=== PATIENT | male | born 1955 | race Caucasian/White ===

== ENCOUNTER 2017-02-05 18:40 | Emergency (ER) | payer MEDICAID ==
[~2017-02-05] VITALS: Ht 170.2 cm; Wt 68.9 kg
[2017-02-05 19:24] VITALS: BP 116/68; PULSE 71; RESP 18; TEMP 97.1; O2SAT 97
--- NOTE | 2017-02-05 19:29 | NUR ---
Patient triaged and placed in waiting room. VSS and patient appears in no acute distress at this time. Accompanied by self, awaiting available bed, and MD notified of need for MSE.
--- NOTE | 2017-02-05 19:35 | NUR ---
Pt came in for machado removal per PMD request. Pt states he is in no pain or discomfort. Will continue to monitor. No other injuries or complaints mentioned/noted. No distress noted.
--- NOTE | 2017-02-05 20:00 | NUR ---
Zev weeks in ED - 02/06/17 at 0615 by AZEEM AMALIA Lui at bedside examining patient.
--- NOTE | 2017-02-05 20:00 | NUR ---
ER Dr. Lui examining patient in triage room.
--- NOTE | 2017-02-05 21:00 | NUR ---
Goodrich removal per Dr. Lui orders w/o incident. Pt told that he needs to void here before discharge. Pt understood instructions.
--- NOTE | 2017-02-05 22:00 | NUR ---
Pt eloped from waiting room.
== END 2017-02-05 19:29 | disposition home or self-care (01) ==
LOC: SED 18:40
DX: Z46.6 Encounter for fitting and adjustment of urinary device (principal); I25.2 Old myocardial infarction; Z53.20 Procedure and treatment not carried out because of patient's decision for unspecified reasons
CPT/HCPCS: 99281

== ENCOUNTER 2017-07-12 06:32 | Emergency (ER) | payer MEDICAID ==
[~2017-07-12] VITALS: Ht 162.6 cm; Wt 69.9 kg
[2017-07-12 06:35] VITALS: BP_SYST 118
--- NOTE | 2017-07-12 06:35 | NUR ---
Patient to ER bed 8 to gown for evaluation. Side rails up. Report given to DEANN RIVER.
--- NOTE | 2017-07-12 06:36 | NUR ---
Patient AAO X4, sitting in bed c/o urinary retention. Patient states he had a prostate biopsy on thursday07/10/17. Patient last voided last night. Unable to void this morning. No acute distress noted. Will continue to monitor.
--- NOTE | 2017-07-12 06:50 | NUR ---
# 16 FR Goodrich catheter with use of sterile technique. Immediate return of 350 cc clear yellow urine noted. Bedside drainage bag placed below level of bladder. Urine sample collected and sent to lab. Pt tolerated procedure well, no adverse reactions noted.
--- NOTE | 2017-07-12 06:52 | NUR ---
AMALIA Mera at bedside examining patient.
[2017-07-12 07:24] VITALS: BP_SYST 108
--- NOTE | 2017-07-12 07:24 | NUR ---
Patient given written and verbal discharge instructions and verbalizes understanding. ER MD discussed with patient the results and treatment provided. Patient in stable condition. ID arm band removed. No Rx of given. Patient educated on pain management and to follow up with PMD. Pain Scale 0/10 . Opportunity for questions provided and answered.
== END 2017-07-12 07:24 | disposition home or self-care (01) ==
LOC: SED 06:32
DX: R33.9 Retention of urine, unspecified (principal); I25.2 Old myocardial infarction
CPT/HCPCS: 99284

== ENCOUNTER 2017-07-19 06:35 | Emergency (ER) | payer MEDICAID ==
[~2017-07-19] VITALS: Ht 167.6 cm; Wt 69.9 kg
[2017-07-19 06:45] VITALS: BP_SYST 109
[2017-07-19] MEDS ORDERED: FINASTERIDE 5 MG TABLET (PROSCAR) PO ONE (07:45)
[2017-07-19 08:00] LABS: BILIRUBIN,URINE NEGATIVE (NEGATIVE); BLOOD, URINE 1+ (NEGATIVE); CLARITY/URINE CLEAR (CLEAR); COLOR,URINE YELLOW (YELLOW); GLUCOSE,URINE NEGATIVE (NEGATIVE); KETONES,URINE NEGATIVE (NEGATIVE); LEUKOCYTE ESTERASE ,URINE NEGATIVE (NEGATIVE); NITRITE, URINE NEGATIVE (NEGATIVE); PROTEIN URINE NEGATIVE (NEGATIVE); UROBILINOGEN,URINE 0.2 (0.2-1.0)
[2017-07-19 08:07] LABS: BACTERIA,URINE FEW /HPF (None Seen); MUCUS,URINE 1+ /LPF (None Seen); URINE AMORPHOUS PHOSPHATES 1+ /HPF (None Seen); WBC,URINE 0-3 /HPF (0-3)
[2017-07-19 08:32] VITALS: BP_SYST 109
== END 2017-07-19 08:32 | disposition home or self-care (01) ==
LOC: SED 06:35
DX: N40.0 Benign prostatic hyperplasia without lower urinary tract symptoms (principal); Z98.62 Peripheral vascular angioplasty status
CPT/HCPCS: 81000-TC; 99283

== ENCOUNTER 2017-07-27 05:57 | Emergency (ER) | payer MEDICAID ==
[~2017-07-27] VITALS: Ht 170.2 cm; Wt 69.9 kg
--- NOTE | 2017-07-27 06:00 | NUR ---
Patient to ER bed 8 to gown for evaluation. Side rails up.
--- NOTE | 2017-07-27 06:05 | NUR ---
Patient came back with a complaint of machado catheter leak. No acute distress, denies pain and no fever noted.
[2017-07-27 06:15] VITALS: BP_SYST 121
--- NOTE | 2017-07-27 06:15 | NUR ---
ER at bedside examining patient.
--- NOTE | 2017-07-27 06:30 | NUR ---
AMALIA Paul reinserted machado catheter using sterile technique and wrapped and secured with coban.
[2017-07-27 06:40] VITALS: BP_SYST 119
--- NOTE | 2017-07-27 06:40 | NUR ---
Patient given written and verbal discharge instructions and verbalizes understanding. ER MD discussed with patient the results and treatment provided. Patient in stable condition. ID arm band removed. Patient educated on pain management and to follow up with PMD. Pain Scale 0/10. Opportunity for questions provided and answered.
== END 2017-07-27 06:40 | disposition home or self-care (01) ==
LOC: SED 05:57
DX: Z46.6 Encounter for fitting and adjustment of urinary device (principal); N40.1 Benign prostatic hyperplasia with lower urinary tract symptoms; R33.8 Other retention of urine
CPT/HCPCS: 99284

== ENCOUNTER 2017-08-13 19:43 | Emergency (ER) | payer MEDICAID ==
[~2017-08-13] VITALS: Ht 170.2 cm; Wt 69.9 kg
[2017-08-13 19:50] VITALS: BP_SYST 143
[2017-08-13] MEDS ORDERED: DOXYCYCLINE HYCLATE 100 MG CAPSULE PO ONE (20:45)
[2017-08-13 20:54] LABS: BILIRUBIN,URINE NEGATIVE (NEGATIVE); BLOOD, URINE 3+ (NEGATIVE); CLARITY/URINE CLOUDY (CLEAR); COLOR,URINE AMBER (YELLOW); GLUCOSE,URINE NEGATIVE (NEGATIVE); KETONES,URINE TRACE (NEGATIVE); LEUKOCYTE ESTERASE ,URINE 1+ (NEGATIVE); NITRITE, URINE POSITIVE (NEGATIVE); PH,URINE 6.5 (5.0-8.0); PROTEIN URINE 3+ (NEGATIVE)
[2017-08-13 21:11] LABS: BACTERIA,URINE MODERATE /HPF (None Seen); MUCUS,URINE None Seen /LPF (None Seen); RBC,URINE >100 /HPF (0-3)
[2017-08-13] MEDS ORDERED: DOXYCYCLINE HYCLATE 100 MG CAPSULE ONE (21:34)
[2017-08-13 22:09] LABS: HEMOGLOBIN 14.9 g/dL (14.0-18.0); MEAN CORPUSCULAR HEMOGLOBIN 32 pg (27-31); MEAN CORPUSCULAR HGB CONC 34 % (32-36)
[2017-08-13 22:19] LABS: BASOPHILS # (AUTO) 0.2 K/uL (0.0-0.2); BASOPHILS % (AUTO) 1.3 % (0.0-2.0); EOSINOPHILS # (AUTO) 0.2 K/uL (0.0-0.4); EOSINOPHILS % (AUTO) 1.4 % (0.0-4.0); HEMATOCRIT 43.4 % (36-54); LYMPHOCYTES # (AUTO) 1.3 K/uL (1.0-5.5); LYMPHOCYTES % (AUTO) 10.3 % (20.5-51.5); MEAN CORPUSCULAR VOLUME 93 fL (79.0-98.0); MONOCYTES # (AUTO) 0.7 K/uL (0.0-1.0); MONOCYTES % (AUTO) 5.2 % (1.7-9.3); NEUTROPHILS # (AUTO) 10.7 K/uL (1.8-7.7); NEUTROPHILS % (AUTO) 81.8 % (40.0-70.0); PLATELET COUNT (AUTO) 244 K/uL (130-430); RED BLOOD CELL COUNT(AUTO) 4.66 MIL/uL (4.2-6.2); RED CELL DISTRIBUTION WIDTH 12.2 % (9.0-15.0); WHITE BLOOD COUNT (AUTO) 13.1 K/uL (4.8-10.8)
[2017-08-13 22:28] LABS: INR 1.2 (0.80-1.20); PROTHROMBIN TIME 11.7 SECS (9.5-12.5)
[2017-08-13 23:10] VITALS: BP_SYST 135
== END 2017-08-13 23:10 | disposition home or self-care (01) ==
LOC: SED 19:43
DX: Z46.6 Encounter for fitting and adjustment of urinary device (principal); N41.8 Other inflammatory diseases of prostate; R03.0 Elevated blood-pressure reading, without diagnosis of hypertension; I25.2 Old myocardial infarction
CPT/HCPCS: 36415; 81000-TC; 85025; 85610-TC; 85730-TC; 87086; 87186-TC; 99284

== ENCOUNTER 2017-08-14 06:55 | Emergency (ER) | payer MEDICAID ==
[~2017-08-14] VITALS: Ht 170.2 cm; Wt 69.9 kg
[2017-08-14 07:05] VITALS: BP_SYST 135
[2017-08-14 08:15] VITALS: BP_SYST 133
== END 2017-08-14 08:14 | disposition home or self-care (01) ==
LOC: SED 06:55
DX: T83.038A Leakage of other urinary catheter, initial encounter (principal); I25.2 Old myocardial infarction; F17.200 Nicotine dependence, unspecified, uncomplicated
CPT/HCPCS: 99284

== ENCOUNTER 2024-01-01 10:20 | Inpatient (IN) | payer OTHER, MEDICAID ==
[~2024-01-01] VITALS: Ht 162.6 cm; Wt 64.9 kg
[2024-01-01 10:38] VITALS: BP_SYST 140; PULSE 80; RESP 18; TEMP 97.5; O2SAT 95
[2024-01-01 10:57] LABS: BASOPHILS % (AUTO) 0.5 % (0.0-2.0); EOSINOPHILS % (AUTO) 0.5 % (0.0-4.0); HEMATOCRIT 45.6 % (36-54); HEMOGLOBIN 15.8 g/dL (14.0-18.0); LYMPHOCYTES % (AUTO) 11.1 % (20.5-51.5); MEAN CORPUSCULAR HEMOGLOBIN 32 pg (27-31); MEAN CORPUSCULAR HGB CONC 35 % (32-36); MEAN CORPUSCULAR VOLUME 92 fL (79.0-98.0); MONOCYTES # (AUTO) 0.5 K/uL (0.0-1.0); MONOCYTES % (AUTO) 5.4 % (1.7-9.3); NEUTROPHILS # (AUTO) 7.3 K/uL (1.8-7.7); NEUTROPHILS % (AUTO) 82.5 % (40.0-70.0); PLATELET COUNT (AUTO) 258 K/uL (130-430); RED BLOOD CELL COUNT(AUTO) 4.94 MIL/uL (4.2-6.2); RED CELL DISTRIBUTION WIDTH 13.3 % (9.0-15.0); WHITE BLOOD COUNT (AUTO) 8.9 K/uL (4.8-10.8)
[2024-01-01 11:09] LABS: ANION GAP 7 (5-15); CALCIUM 9.1 mg/dL (8.4-11.0); CARBON DIOXIDE 30 mmol/L (23-29); CHLORIDE 104 mmol/L (98-107); GFR AFRICAN AMERICAN 96 mL/min (>90); GFR NON AFRICAN-AMERICAN 79 mL/min (>90); GLUCOSE 90 mg/dL (74-106); POTASSIUM 4.5 mmol/L (3.5-5.1); SODIUM SERUM 141 mmol/L (136-145); UREA NITROGEN, BLOOD 18 mg/dL (8-21)
[2024-01-01 11:12] LABS: INR 1.1 (0.80-1.20); PROTHROMBIN TIME 11.6 SECS (9.5-12.5)
[2024-01-01 11:16] LABS: BILIRUBIN,URINE NEGATIVE (NEGATIVE); BLOOD, URINE 1+ (NEGATIVE); CLARITY/URINE CLEAR (CLEAR); COLOR,URINE YELLOW (YELLOW); GLUCOSE,URINE NEGATIVE (NEGATIVE); KETONES,URINE 1+ (NEGATIVE); LEUKOCYTE ESTERASE ,URINE NEGATIVE (NEGATIVE); NITRITE, URINE NEGATIVE (NEGATIVE); PROTEIN URINE TRACE (NEGATIVE); UROBILINOGEN,URINE 0.2 (0.2-1.0)
[2024-01-01 11:18] LABS: ALCOHOL, BLOOD < 3 mg/dL (<10)
[2024-01-01 11:29] LABS: BACTERIA,URINE FEW /HPF (None Seen); RBC,URINE 0-3 /HPF (0-3); WBC,URINE NONE SEEN /HPF (0-3)
[2024-01-01 11:31] LABS: BARBITURATE, URINE NEGATIVE (NEG <=200); BENZODIAZEPINE, URINE NEGATIVE (NEG <=150); CANNABINOID, URINE NEGATIVE (NEG <=50); COCAINE, URINE NEGATIVE (NEG <=150); METHAMPHETAMINES SCREEN,URINE NEGATIVE (NEG <=500); OPIATE, URINE NEGATIVE (NEG <=100); PHENCYCLIDINE SCREEN,URINE NEGATIVE (NEG <=25); UR TRICYCLIC ANTIDEPRESSANTS NEGATIVE (NEG <=300); URINE AMPHETAMINE NEGATIVE (NEG <=500); URINE METHADONE NEGATIVE (NEG <=200); URINE OXYCODONE SCREEN NEGATIVE (NEG <=100)
[2024-01-01] MEDS ORDERED: TRAZ-250 PO (13:37)
[2024-01-01] MEDS ORDERED: MEMA10TA56 PO (13:37)
[2024-01-01] MEDS ORDERED: BREX1TAB PO (13:37)
[2024-01-01 16:43] VITALS: BP_SYST 133; PULSE 81; RESP 16; TEMP 98.5; O2SAT 97
[2024-01-01 17:15] VITALS: O2SAT 97
[2024-01-01] MEDS: QUEtiapine FUMARATE 25 MG TABLET PO SCH (17:44)
[2024-01-01 20:00] VITALS: BP_SYST 128; PULSE 78; RESP 18; TEMP 97.8; O2SAT 98
[2024-01-01] MEDS: traZODone HCL 50 MG TABLET (DESYREL) PO SCH (20:45)
[2024-01-01] MEDS: MEMANTINE HCL 5 MG TABLET PO SCH (20:45)
[2024-01-01] MEDS: DONEPEZIL HCL 5 MG TABLET (ARICEPT) PO SCH (20:45)
[2024-01-01] MEDS: QUEtiapine FUMARATE 25 MG TABLET PO ONE (23:05)
[2024-01-01] MEDS: LORazepam 1 MG TABLET PO ONE (23:06)
[2024-01-02 00:37] VITALS: PULSE 80; RESP 18; TEMP 96.9; O2SAT 98
[2024-01-02 07:08] LABS: BASOPHILS % (AUTO) 0.5 % (0.0-2.0); EOSINOPHILS # (AUTO) 0.1 K/uL (0.0-0.4); EOSINOPHILS % (AUTO) 1.3 % (0.0-4.0); HEMATOCRIT 40.5 % (36-54); HEMOGLOBIN 14.2 g/dL (14.0-18.0); LYMPHOCYTES # (AUTO) 1.1 K/uL (1.0-5.5); LYMPHOCYTES % (AUTO) 19.5 % (20.5-51.5); MEAN CORPUSCULAR HEMOGLOBIN 32 pg (27-31); MEAN CORPUSCULAR HGB CONC 35 % (32-36); MEAN CORPUSCULAR VOLUME 92 fL (79.0-98.0); MONOCYTES # (AUTO) 0.5 K/uL (0.0-1.0); NEUTROPHILS % (AUTO) 70.7 % (40.0-70.0); PLATELET COUNT (AUTO) 219 K/uL (130-430); RED BLOOD CELL COUNT(AUTO) 4.42 MIL/uL (4.2-6.2); RED CELL DISTRIBUTION WIDTH 13.3 % (9.0-15.0); WHITE BLOOD COUNT (AUTO) 5.6 K/uL (4.8-10.8)
[2024-01-02 07:50] LABS: ALBUMIN 3.3 g/dL (3.4-4.8); CALCIUM 8.5 mg/dL (8.4-11.0); CREATININE 1.04 mg/dL (0.55-1.30); POTASSIUM 3.5 mmol/L (3.5-5.1); THYROID STIMULATING HORMONE 1.7 uIu/mL (0.34-4.82); TOTAL BILIRUBIN 0.9 mg/dL (0.0-1.0); TOTAL PROTEIN, SERUM 6.4 g/dL (6.4-8.3)
[2024-01-02 08:15] VITALS: BP_SYST 110; PULSE 57; RESP 18; TEMP 97.2; O2SAT 100
[2024-01-02] MEDS ORDERED: NON-FORMULARY MEDICATION (Brexpiprazole (Rexulti) 1 TAB) PO SCH (09:00)
[2024-01-02 10:02] VITALS: O2SAT 100
[2024-01-02 11:35] VITALS: BP_SYST 111; PULSE 97; RESP 17; TEMP 97.7; O2SAT 95
[2024-01-02] MEDS ORDERED: DIPHENHYDRAMINE INJ 50 MG/ML VIAL IVP PRN (13:30)
[2024-01-02 17:55] VITALS: BP_SYST 106; PULSE 83; RESP 17; TEMP 97.6; O2SAT 95
[2024-01-02] MEDS ORDERED: QUEtiapine FUMARATE 25 MG TABLET PO SCH (18:00)
[2024-01-02] MEDS: QUEtiapine FUMARATE 100 MG TABLET PO SCH (18:01)
[2024-01-02 20:00] VITALS: BP_SYST 93; PULSE 70; RESP 18; TEMP 97.1; O2SAT 94
[2024-01-03] VITALS: BP_SYST 101; PULSE 67; RESP 18; TEMP 97; O2SAT 97
[2024-01-03 08:21] VITALS: BP_SYST 92; PULSE 95; RESP 16; TEMP 97.7; O2SAT 92
[2024-01-03 11:36] VITALS: BP_SYST 106; PULSE 91; RESP 17; TEMP 97.9; O2SAT 95
[2024-01-03 16:27] VITALS: BP_SYST 109; PULSE 84; RESP 16; TEMP 97.4; O2SAT 94
[2024-01-03 20:00] VITALS: BP_SYST 111; PULSE 89; RESP 18; TEMP 97.8; O2SAT 97
[2024-01-03] MEDS: DONEPEZIL HCL 5 MG TABLET (ARICEPT) PO SCH (20:31)
[2024-01-04 04:00] VITALS: BP_SYST 110; PULSE 82; RESP 20; TEMP 98; O2SAT 97
[2024-01-04 07:56] VITALS: O2SAT 99
[2024-01-04 08:00] VITALS: BP_SYST 96; PULSE 73; RESP 17; TEMP 98.2; O2SAT 98
[2024-01-04] MEDS: QUEtiapine FUMARATE 25 MG TABLET PO SCH (10:08)
[2024-01-04 12:00] VITALS: BP_SYST 102; PULSE 72; RESP 18; TEMP 98; O2SAT 95
[2024-01-04 16:36] VITALS: BP_SYST 109; PULSE 79; RESP 19; TEMP 97.9; O2SAT 96
[2024-01-04 16:50] VITALS: BP_SYST 109; PULSE 79; RESP 19; TEMP 97.1; O2SAT 96
[2024-01-04] MEDS ORDERED: DONE5TAB33 PO (17:25)
[2024-01-04] MEDS ORDERED: SER100 PO (18:50)
[2024-01-04] MEDS ORDERED: SER25 PO (18:51)
== END 2024-01-05 00:05 | DRG 887 ==
LOC: SED 10:20 → STU 14:54 → SMU 01-03 17:43
PROVIDERS: ADMIT Internal Medicine; ATTEND Internal Medicine
DX: G47.00 Insomnia, unspecified (principal); F03.918 Unspecified dementia, unspecified severity, with other behavioral disturbance; F32.A Depression, unspecified; Z86.73 Personal history of transient ischemic attack (TIA), and cerebral infarction without residual deficits; Z79.899 Other long term (current) drug therapy
CPT/HCPCS: 36415; 70450-TC; 71045; 80048; 80053; 80307; 81000; 81001; 81015; 83735; 84439; 84443; 84484; 85025; 85610; 85730; 93005; 99285; G0378; G0482